=== PATIENT | male | born 1965 | race Caucasian/White ===

== ENCOUNTER 2020-01-17 12:47 | Observation (INO) ==
[2020-01-17] MEDS ORDERED: *HR* Promethazine 25 MG/ML VIAL IVP PRN (17:18)
[2020-01-17] MEDS ORDERED: Naloxone 0.4 MG/ML INJ IVP PRN (17:18)
[2020-01-17] MEDS ORDERED: Nitroglycerin 0.4 MG TAB.SUBL SL PRN (17:21)
[2020-01-17] MEDS ORDERED: Perflutren Lipid Microsphere 1.3 ML in 0.9 % Sodium Chloride 8.7 ML IVP PRN (17:23)
[2020-01-17] MEDS ORDERED: Nicotine 2 MG GUM BC PRN (18:17)
[2020-01-17] MEDS: Nicotine 14 MG PATCH.TD24 TD SCH (18:24)
[2020-01-17] MEDS ORDERED: Acetaminophen 325 MG TABLET PO ONE (21:22)
[2020-01-18 00:49] LABS: Hematocrit 47.3 % (37.5-50.1); Hemoglobin 15.6 g/dL (12.9-16.9); Mean Platelet Volume 9.6 fL (9.4-12.4); Platelet Count 311 K/mcL (140-400); Red Cell Distribution Width 11.9 % (11.5-14.5); White Blood Count 11.1 K/mcL (4.3-11.1)
[2020-01-18 01:04] LABS: BUN/Creatinine Ratio 19 (6-26); Blood Urea Nitrogen 15 mg/dL (6-20); Calcium 8.4 mg/dL (8.6-10.3); Carbon Dioxide 25 mEq/L (23-29); Chloride 106 mEq/L (98-107); Glucose 91 mg/dL (70-105); Osmolality,Calculated 286 (280-300); Potassium 3.6 mEq/L (3.5-5.1); Sodium 138 mEq/L (136-145); eGFR For African Americans > 60 (> 60); eGFR For Non-African Americans > 60 (> 60)
[2020-01-18] MEDS ORDERED: *HR* Enoxaparin 40 MG/0.4 ML SYRINGE SQ SCH (06:00)
[2020-01-18] MEDS ORDERED: Regadenoson 0.4 MG/5 ML SYRINGE IVP ONE (07:06)
[2020-01-18] MEDS: Nicotine 14 MG PATCH.TD24 TD SCH (11:00)
[2020-01-18 11:34] VITALS: BP 154/97
[2020-01-18] MEDS ORDERED: Furosemide 20 MG TABLET PO SCH (17:00)
== END 2020-01-18 12:16 | disposition home or self-care (01) ==
LOC: 3BNU
PROVIDERS: ADMIT Internal Medicine; ATTEND Internal Medicine